=== PATIENT | male | born 1960 | race Caucasian/White ===

== ENCOUNTER 2023-12-15 10:42 | Emergency (ER) | payer OTHER, SELFPAY ==
[2023-12-15 10:45] VITALS: BP 143/90
--- NOTE | 2023-12-15 11:22 | ED.GENMED ---
History of Present Illness
General
Chief Complaint: Musculo-Skeletal Complaint
Time Seen by Provider: 12/15/23 10:57
Travel History
Have you had any contact with someone who has COVID-19?: No
Do you have any symptoms of coronavirus? Fever > 100 degrees, chills, cough, shortness of breath, sore throat, loss of taste or smell, muscle aches, or headache?: No
History of Present Illness
History of Present Illness:
63-year-old male presents to the emergency department for evaluation of recurrent left knee swelling. He has known arthritis, saw his orthopedist approximate 2 weeks ago and had a arthrocentesis with intra-articular steroid injection. States over
the past 2 days that has become increasingly swollen and painful limiting his ability to walk. He is requesting arthrocentesis again today. Denies any fevers or chills.
Past History
Past History
ED Past Medical History: None; Negative Asthma, HTN, Hypercholesterolemia or NIDDM
ED Past Surgical History: None
Social History
Tobacco: Non-smoker
Alcohol: Occasional
Drug: None
Personal:
Living: with family
Employment: Employed
Family History
Family History: Other (Noncontributory)
Review of Systems
Review of Systems
Allergies reviewed?: Yes
All Other Systems: ROS reviewed and negative except as documented in HPI and ROS
Phy Exam
Physical Exam
Physical Exam:
GEN: Well appearing, NAD, WDWN
HEENT: Oral mucosa moist, no scleral icterus
Cardiac: Regular rate
Lung: No respiratory distress, no tachypnea
MSK: Large left knee effusion, range of motion normal, no pain with passive range of motion
Skin: Good color, no pallor or jaundice, no rashes
Neuro: AO x3, moves all extremities freely
Psych: Calm, cooperative
Course
Orders/Labs/Results
Orders:
Orders
12/15/23 10:50
Knee, Left 4 or More Views [CR Knee - Left 4 Or More View*] Urgent
Comment: pt has arthritis
Reason For Exam: left knee swelling
12/15/23 11:34
Body Fluid Cell Count Urgent
What is the Body Fluid: joint
Date Specimen was Collected: 12/15/23
Time Specimen was Collected: 11:30
Comment: with DIFF
Body Fluid Crystals Urgent
What is the Body Fluid: joint
Date Specimen was Collected: 12/15/23
Time Specimen was Collected: 11:30
Fluid Culture with Gram Stain Urgent
SMOOTH Source: Joint Fluid
Specimen Description:
Date Specimen was Collected: 12/15/23
Time Specimen was Collected: 11:31
Vital Signs
Initial and Last Documented VS:
Initial Vital Signs
Temp Pulse Resp BP Pulse Ox
98.0 F 95 18 143/90 98
12/15/23 10:45 12/15/23 10:45 12/15/23 10:45 12/15/23 10:45 12/15/23 10:45
Last Documented Vital Signs
Temp Pulse Resp BP Pulse Ox
98.0 F 87 16 134/74 98
12/15/23 10:45 12/15/23 11:48 12/15/23 11:48 12/15/23 11:48 12/15/23 11:48
Procedures
Incision/Drainage/Joint Aspiration
Left Knee:
Anethesia: 1% Lidocaine
Preparation: cleaned with Betadine
Type of procedure: aspiration
Nature of site: other (joint)
How much fluid was obtained?: large amount
Fluid description: straw colored and blood tinged
Treatment: bandaid applied
MDM/Problems Addressed
MDM/Problems Addressed:
Bedside arthrocentesis performed w/ >80cc straw colored fluid aspirated, joint fluid w/ crystals, no evidence of infectious etiology
*Critical Care Note
Total Time (30-74mins, 75-104mins- exclusive of procedures): Not Applicable
ED Attending Note
-
Portions of this chart may have been created with voice recognition software.� Occasional wrong word or��sound alike� substitutions may have occurred due to the inherent limitations of voice recognition software.
Discharge Plan
Departure
Patient Disposition: Home (Routine Discharge)
Date of Disposition: 12/15/23
Time of Disposition: 11:22
Patient with high blood pressure during this ER visit?: No
Discharge Problem:
Effusion of left knee
Instructions: Swollen Joints (DC)
Prescriptions:
New
colchicine 0.6 mg tablet
0.6 mg PO DAILY Qty: 10 0RF
Rx Instructions:
1.2mg PO, then 0.6mg PO 1hr later; then 0.6mg PO qd prn pain
No Action
multivitamin with folic acid [Tab-A-Des] 1 TABLET tablet
1 tab PO DAILY
prednisone 10 MG tablet
40 mg PO DAILY Qty: 56 0RF
pantoprazole 40 MG tablet,delayed release (DR/EC)
40 mg PO DAILY Qty: 30 0RF
Referrals:
Abhishek Weber MD [Active] -
Jaime Hodges MD [Family Provider] -
Activity Restrictions/Additional Instructions:
We sent your knee fluid for lab analysis. If there are concerning signs of infection (which is not likely), you will be asked to return to the ER for hospital admission
Continue celebrex
Interventions
Interventions:
*Risk Screen - Suicide Last Done: 12/15/23 11:47
*General Assessment Last Done: 12/15/23 11:47
*Neglect/Abuse Screening Last Done: 12/15/23 11:47
ED- Fall Risk Assessment Last Done: 12/15/23 11:47
*ED COVID-19 Vaccine History Last Done: 12/15/23 10:49
*Nursing Disposition Last Done: 12/15/23 11:48
ED-Musculoskeletal Assessment Last Done: 12/15/23 11:00
Discharge Date and Time
Discharge Date/Time: 12/15/23 11:49
[2023-12-15 11:48] VITALS: BP 134/74
[2023-12-15 12:00] LABS: Body Fluid Mononuclear 37.5 %; Body Fluid Polymorphonuclear 62.5 %; Body Fluid WBC 26395 /CUMM
[2023-12-15 13:04] LABS: Body Fluid Second Tech HB
== END 2023-12-15 11:49 | disposition home or self-care (01) ==
LOC: EMR 10:42
PROVIDERS: Physician Assistant; EMERGENCY PHYSICIAN Emergency Medicine; FAMILY PHYSICIAN Family Medicine
DX: M25.462 Effusion, left knee (principal)
CPT/HCPCS: 99284; 20610; 73564; 87015; 87070; 87205; 89051; 89060

== ENCOUNTER → 2024-07-25 09:36 | Outpatient (REF) | payer OTHER, SELFPAY | LOC: RAD 09:36 | PROVIDERS: ATTENDING PHYSICIAN Orthopaedic Surgery; FAMILY PHYSICIAN Physician Assistant Medical | DX: M79.662 Pain in left lower leg (principal); M25.562 Pain in left knee | CPT/HCPCS: 93971 ==

== ENCOUNTER 2024-09-30 13:19 | Outpatient (RCR) | payer OTHER, SELFPAY | END 2024-09-30 23:59 | disposition home or self-care (01) | LOC: RPT 13:19 | PROVIDERS: ATTENDING PHYSICIAN Orthopaedic Surgery; FAMILY PHYSICIAN Physician Assistant Medical | DX: Z47.1 Aftercare following joint replacement surgery (principal); Z73.6 Limitation of activities due to disability; R26.89 Other abnormalities of gait and mobility; M25.562 Pain in left knee; Z96.652 Presence of left artificial knee joint | CPT/HCPCS: 97110; 97140; 97162 ==

== ENCOUNTER 2024-10-20 07:43 | Outpatient (RCR) | payer OTHER, SELFPAY | END 2024-10-27 23:59 | disposition home or self-care (01) | LOC: RPT 07:43 | PROVIDERS: ATTENDING PHYSICIAN Orthopaedic Surgery; FAMILY PHYSICIAN Physician Assistant Medical | DX: Z47.1 Aftercare following joint replacement surgery (principal); Z73.6 Limitation of activities due to disability; R26.89 Other abnormalities of gait and mobility; M62.81 Muscle weakness (generalized); Z96.652 Presence of left artificial knee joint | CPT/HCPCS: 97010; 97110; 97112; 97530 ==

== ENCOUNTER → 2025-01-09 11:38 | Outpatient (REF) | payer OTHER, SELFPAY | LOC: HWRAD 11:38 | PROVIDERS: ATTENDING PHYSICIAN Physician Assistant Medical | DX: M79.671 Pain in right foot (principal); M25.571 Pain in right ankle and joints of right foot | CPT/HCPCS: 73610; 73630 ==

== ENCOUNTER 2025-01-17 09:12 | Emergency (ER) | payer OTHER, SELFPAY ==
[2025-01-17 09:14] VITALS: BP 135/81
--- NOTE | 2025-01-17 10:15 | ED.GENMED ---
History of Present Illness
<Addis Sotomayor PA-C - Last Filed: 01/18/25 11:14>
General
Chief Complaint: Extremity Pain (non-traumatic)
Source: patient
Exam Limitations: none
Time Seen by Provider: 01/17/25 09:55
Nursing documentation reviewed up to this point in time: agreed with
History of Present Illness
History of Present Illness:
Patient is a 65-year-old male presenting to the emergency department for evaluation of atraumatic right ankle pain/swelling for the past 5 weeks. Patient states he woke up with acute onset right ankle pain/swelling 5 weeks ago which has essentially
persisted. He was seen by his primary care about 2 weeks ago with a suspected underlying gout after negative x-ray imaging of right ankle and right foot. He was started on a prednisone course and advised to take NSAIDs. He completed his
prednisone on Sunday and states symptoms seemed improved although on Sunday started to flare again. He is having significant pain with weightbearing. He now feels that pain is moving up to his right knee.
Patient reports that he has been taking 800 mg of ibuprofen every 4 hours.
Patient denies any fever, chills. He has not noticed any redness of right ankle. He has no prior history of gout although his brother does.
Patient is scheduled to see an orthopedic next Sunday.
Past History
<Addis Sotomayor PA-C - Last Filed: 01/18/25 11:14>
Past History
ED Past Medical History: None; Negative Asthma, HTN, Hypercholesterolemia or NIDDM
ED Past Surgical History: None
Social History
Tobacco: Non-smoker
Alcohol: Occasional
Drug: None
Personal:
Living: with family
Employment: Employed
Family History
Family History: Other (Noncontributory)
Review of Systems
<Addis Sotomayor PA-C - Last Filed: 01/18/25 11:14>
Review of Systems
Allergies reviewed?: Yes
All Other Systems: ROS reviewed and negative except as documented in HPI and ROS
Phy Exam
<Addis Sotomayor PA-C - Last Filed: 01/18/25 11:14>
Physical Exam
Physical Exam:
Vitals: Mildly hypertensive, otherwise vital signs stable. Afebrile
General: Patient is well appearing, no acute distress
Skin: Warm and dry, no rashes or lesions
Head: Normocephalic, atraumatic
Throat: Protecting airway
Neck: Normal ROM, no cervical spine tenderness
Cardiac: Regular rate
Pulm: No apparent respiratory distress
Abdomen: Nondistended
Extremities: Diffuse tenderness and edema of right ankle with mild warmth. No erythema or red streaking right ankle/foot. Limited range of motion right ankle due to pain. No effusion of right knee. Good range of motion of right knee without
pain. Right lower extremity neurovascularly intact with 2+ palpable DP pulse and normal capillary refill. Negative Homans' sign.
Neuro: Grossly intact
Psychiatric: Normal affect.
Course
<Addis Sotomayor PA-C - Last Filed: 01/18/25 11:14>
Orders/Labs/Results
Orders:
Orders
01/17/25 10:03
Knee, Right 4 or More Views [CR Knee- Right 4 Or More View*] Urgent
Comment:
Reason For Exam: Atraumatic right knee pain
Periph Venous Lwr Ext Rt US [US Periph Venous LOWER Ext RT] Urgent
Comment:
Reason For Exam: Atraumatic R ankle swelling/pain
01/17/25 15:03
Colchicine 0.6 mg PO NOW STA
Prednisone [Deltasone] 50 mg PO NOW STA
Vital Signs
Initial and Last Documented VS:
Initial Vital Signs
Temp Pulse Resp BP Pulse Ox
98.7 F 97 16 135/81 96
01/17/25 09:14 01/17/25 09:14 01/17/25 09:14 01/17/25 09:14 01/17/25 09:14
Last Documented Vital Signs
Temp Pulse Resp BP Pulse Ox
98.7 F 71 18 131/82 97
01/17/25 09:14 01/17/25 15:32 01/17/25 15:32 01/17/25 15:32 01/17/25 15:32
<Corine Narayanan DO - Last Filed: 01/17/25 14:33>
Orders/Labs/Results
Orders:
Orders
01/17/25 10:03
Knee, Right 4 or More Views [CR Knee- Right 4 Or More View*] Urgent
Comment:
Reason For Exam: Atraumatic right knee pain
Periph Venous Lwr Ext Rt US [US Periph Venous LOWER Ext RT] Urgent
Comment:
Reason For Exam: Atraumatic R ankle swelling/pain
01/17/25 15:03
Colchicine 0.6 mg PO NOW STA
Prednisone [Deltasone] 50 mg PO NOW STA
Vital Signs
Initial and Last Documented VS:
Initial Vital Signs
Temp Pulse Resp BP Pulse Ox
98.7 F 97 16 135/81 96
01/17/25 09:14 01/17/25 09:14 01/17/25 09:14 01/17/25 09:14 01/17/25 09:14
Last Documented Vital Signs
Temp Pulse Resp BP Pulse Ox
98.7 F 71 18 131/82 97
01/17/25 09:14 01/17/25 15:32 01/17/25 15:32 01/17/25 15:32 01/17/25 15:32
<Addis Sotomayor PA-C - Last Filed: 01/18/25 11:14>
MDM/Problems Addressed
Differential Diagnosis Includes:
Not limited to: Osteoarthritis, inflammatory arthritis including gout, septic arthritis, Lyme disease, DVT, etc.
MDM/Problems Addressed:
65-year-old male with approximately 5 weeks of atraumatic right ankle/foot swelling and pain. Treated for suspected gout by PCP after never get of x-ray imaging with temporary improvement. No fever, chills. Mildly hypertensive, otherwise stable
vital signs on arrival. Physical exam as above. There is diffuse swelling of right ankle with significant tenderness. He does state tenderness seems to radiate from first MTP into ankle and now up to knee. There is no overlying erythema or
warmth. Patient does have limited range of motion right ankle due to pain. RLE neurovascularly intact. Ultimately�do not suspect septic arthritis or infectious process. Was able to review x-ray images performed outpatient of right foot and right
ankle on 01/09/2025 without any evidence of acute fracture. Will obtain ultrasound to rule out DVT and x-ray right knee given radiating pain.
Update: Right knee x-ray without acute findings. Ultrasound right lower extremity shows no evidence of DVT although incidental finding of small saccular aneurysm noted�which patient was made aware of. Advised to follow this with PCP.
Ultimately�suspect inflammatory arthritis. On review of chart�it does seem that he had knee arthrocentesis many years ago which was positive for crystals�making gout higher on differential today. Will prescribe additional course steroids as well
as colchicine. He has follow-up appoint with orthopedics next week. He declines crutches as he has them at home. Strict return precautions discussed including any signs of infection. Patient comfortable with plan. Patient seen with attending
physician.
Chronic conditions affecting care:
N/A
Acute Exacerbation and/or Progression of Chronic Illness:
N/A
<Addis Sotomayor PA-C - Last Filed: 01/18/25 11:14>
*Radiology
Radiology exam reviewed: preliminary read by ED provider (X-ray of right knee reviewed by me-no acute abnormalities) and radiology read reviewed
*Pulse Oximetry
Patient hypoxic: no
*EKG
Interpreted by ED Provider?: NA
*Dimension Mill Worker Interpretation
Rate: Dimension [employer] Worker- N/A
*Critical Care Note
Total Time (30-74mins, 75-104mins- exclusive of procedures): Not Applicable
Data Reviewed
Review of Other/Old Records Reveals: Radiology Studies (Right foot and right ankle x-rays obtained 01/09/2025 no acute fracture, arthritic changes)
Source: previous radiology exam
ED Attending Note
<Addis Sotomayor PA-C - Last Filed: 01/18/25 11:14>
-
Portions of this chart may have been created with voice recognition software.� Occasional wrong word or��sound alike� substitutions may have occurred due to the inherent limitations of voice recognition software.
<Corine Narayanan DO - Last Filed: 01/17/25 14:33>
ED Attending Note
Patient seen and examined by attending physician: Yes
I performed the substantive portion of visit, reviewed & personally made and approve the management plan that is documented in note by myself or BRIANA.: Yes
I performed a history and physical exam of patient and discussed management with resident, I reviewed resident's note and agree with documented findings and plan of care.: Yes
ED Attending Note:
65-year-old male presenting to the emergency department for persistent right ankle pain and swelling. Notes symptoms for the past several weeks. Patient has been following with his doctor, prescribed steroids and advised NSAIDs for suspected gout.
Patient did have interval improvement, however steroids finished a week ago, and symptoms returned the next day. He notes his symptoms started after he ate shrimp, however denies eating shrimp again, or any increased alcohol consumption. Denies
known injury. Denies numbness or tingling. Reports pain with ambulation. Pain starts in the first MTP, radiates up to the ankle and is now in the travis region. Denies history of DVT.
On exam, patient resting comfortably, no acute distress or discomfort. Patient does have moderate swelling to the right ankle joint with range of motion intact. Distal sensation and pulses intact. No erythema or warmth. Generalized tenderness on
palpation to the first MTP joint and the ankle. Clinically continue to suspect gout given location and duration of symptoms. Lower suspicion for any septic joint in the absence of any redness or warmth, and again duration of symptoms for the past
5 to 6 weeks. No present neurovascular compromise. Plan for screening DVT ultrasound. Notes that he did have outpatient x-ray imaging that was negative. Plan for additional prednisone taper and colchicine. Patient has an up coming appointment
with orthopedics on Sunday which I advised he maintain. Return precautions discussed and patient verbalized understanding
Discharge Plan
Departure
Patient Disposition: Home (Routine Discharge)
Date of Disposition: 01/17/25
Time of Disposition: 15:14
Patient with high blood pressure during this ER visit?: Yes
Condition: Good
Discharge Problem:
Swelling of ankle joint, right
Instructions: Low-purine diet, Gout - ED discharge instructions
Prescriptions:
New
prednisone 10 mg Tablet
See Rx Instructions .ROUTE .COMPLEX Qty: 45 0RF
Rx Instructions:
Take By Mouth:
50 mg daily x3 days, 40 mg daily x3 days,
30 mg daily x3 days, 20 mg daily x3 days,
10 mg daily x3 days
colchicine 0.6 mg tablet
0.6 mg PO DAILY PRN (Reason: pain) Qty: 10 0RF
No Action
multivitamin with folic acid [Tab-A-Des] 1 TABLET tablet
1 tab PO DAILY
prednisone 10 MG tablet
40 mg PO DAILY Qty: 56 0RF
pantoprazole 40 MG tablet,delayed release (DR/EC)
40 mg PO DAILY Qty: 30 0RF
colchicine 0.6 mg tablet
0.6 mg PO DAILY Qty: 10 0RF
Rx Instructions:
1.2mg PO, then 0.6mg PO 1hr later; then 0.6mg PO qd prn pain
Referrals:
Reyna Douglas PA-C [Family Provider] -
Tano Trejo MD [Active] - Next open appointment
Activity Restrictions/Additional Instructions:
RETURN TO THE EMERGENCY DEPARTMENT WITH ANY NUMBNESS/TINGLING IN RIGHT LOWER EXTREMITY OR FOOT, INTRACTABLE PAIN, REDNESS OR WARMTH OF RIGHT ANKLE, FEVERS, OR ANY OTHER CONCERNS
- As discussed�the x-ray of your right knee showed no acute abnormality.
- This is likely an inflammatory arthritis, potentially gout. Discharged on additional course of prednisone. Initiate colchicine once a day as needed for pain. You can take ibuprofen 1600 mg every 8 hours.
-I will contact you if your ultrasound is positive.
- Follow-up with orthopedics for further evaluation/management. You may require further imaging.
Monitor your symptoms closely return to the emergency department with any acute worsening/new symptoms or any signs of infection
Interventions
Interventions:
*Risk Screen - Suicide Last Done: 01/17/25 11:03
*General Assessment Last Done: 01/17/25 11:03
*Neglect/Abuse Screening Last Done: 01/17/25 11:03
*ED- Fall Risk Assessment Last Done: 01/17/25 11:03
*ED COVID-19 Vaccine History Last Done: 01/17/25 15:33
*Nursing Disposition Last Done: 01/17/25 15:32
ED-Musculoskeletal Assessment Last Done: 01/17/25 11:19
ED-Peripheral Vascular Assessment Last Done: 01/17/25 11:19
ED-Skin Assessment Last Done: 01/17/25 11:19
Discharge Date and Time
Discharge Date/Time: 01/17/25 15:34
Print Language: THAI
[2025-01-17] MEDS: COLCHICINE 0.6 MG PO (15:18)
[2025-01-17] MEDS: DELTASONE 50 MG PO (15:18)
[2025-01-17 15:32] VITALS: BP 131/82
== END 2025-01-17 15:34 | disposition home or self-care (01) ==
LOC: EMR 09:12
PROVIDERS: EMERGENCY PHYSICIAN Student in an Organized Health Care Education/Training Program; FAMILY PHYSICIAN Physician Assistant Medical
DX: R22.41 Localized swelling, mass and lump, right lower limb (principal); M25.571 Pain in right ankle and joints of right foot
CPT/HCPCS: 99284; 73564; 93971

== ENCOUNTER → 2025-04-16 06:33 | Outpatient (REF) | payer OTHER, SELFPAY | LOC: MRI 3T 06:33 | PROVIDERS: ATTENDING PHYSICIAN Student in an Organized Health Care Education/Training Program; FAMILY PHYSICIAN Physician Assistant Medical | DX: M25.571 Pain in right ankle and joints of right foot (principal); M79.671 Pain in right foot | CPT/HCPCS: 73721 ==

== ENCOUNTER → 2025-04-17 06:37 | Outpatient (REF) | payer OTHER, SELFPAY | LOC: MRI 3T 06:37 | PROVIDERS: ATTENDING PHYSICIAN Student in an Organized Health Care Education/Training Program; FAMILY PHYSICIAN Physician Assistant Medical | DX: M25.572 Pain in left ankle and joints of left foot (principal); M79.672 Pain in left foot | CPT/HCPCS: 73718; 73721 ==

== ENCOUNTER → 2025-04-26 09:16 | Outpatient (REF) | payer OTHER, SELFPAY | LOC: MRI 3T 09:16 | PROVIDERS: ATTENDING PHYSICIAN Student in an Organized Health Care Education/Training Program; FAMILY PHYSICIAN Physician Assistant Medical | DX: M79.671 Pain in right foot (principal) | CPT/HCPCS: 73718 ==